=== PATIENT | male | born 1945 | race African-American/Black ===

== ENCOUNTER 2022-01-20 01:23 | Inpatient (IN) ==
[2022-01-20 03:03] LABS: Alanine Aminotransferase 13 U/L (16-61); Albumin 2.3 G/DL (3.4-5.0); Alkaline Phosphatase 127 U/L (45-117); Aspartate Amino Transferase 19 U/L (0-37); Bilirubin,Total < 0.39 MG/DL (0.20-1.00); Blood Urea Nitrogen 23 MG/DL (7-18); Calcium 8.6 MG/DL (8.5-10.1); Carbon Dioxide 30 MMOL/L (21-32); Chloride 106 MMOL/L (98-107); Glucose 81 MG/DL (74-106); Osmolality,Calculated 285.1 MOS/KG (273-304); Potassium 4.4 MMOL/L (3.5-5.1); Sodium 142 MMOL/L (136-145); Total Protein 6.8 G/DL (6.4-8.2)
[2022-01-20 03:04] LABS: Basophils % 0.5 % (0.0-0.8); Eosinophils # 0.3 10*3/uL (0.0-0.87); Eosinophils % 4.8 % (0.00-10.9); Hematocrit 30.1 VOL% (42.0-52.0); Hemoglobin 8.9 GM/DL (14.0-18.0); Immature Granulocytes % 0.5 %; Immature Granulocytes Absolute 0.03 #; Lymphocytes % 29.7 % (21.2-54.2); Mean Corpuscular HGB Conc 29.6 GM/DL (32-36); Mean Corpuscular Volume 88.3 FL (87-102); Monocytes # 0.5 10*3/uL (0.11-0.8); Monocytes % 7.7 % (1.7-12.7); Neutrophils % 56.8 % (38.7-73.9); Platelet Count 134 T/CUMM (130-400); Red Blood Count 3.41 MC/CUMM (3.8-5.5); Red Cell Distribution Width 15.6 % (9.3-17.3); White Blood Count 6.7 T/CUMM (4-12)
[2022-01-20 03:12] LABS: PT Patient Result 11.3 SECS (10.5-12.0)
[2022-01-20 03:20] LABS: Bacteria,Urine Moderate /HPF (Few)
[2022-01-20 03:21] LABS: Bilirubin,Urine Negative (Negative); Blood, Urine Small mg/dL (Negative); Glucose,Urine (UA) Negative (Negative); Ketones,Urine Negative (Negative); Nitrite,Urine Positive (Negative); Protein,Urine 30 mg/dL (Negative); Urine Appearance CLOUDY (Clear); Urine Color Yellow (Yellow); Urine Urobilinogen 0.2 eU/dL (<2.0); Urine pH 5.5 (4.5-8.0)
[2022-01-20] MEDS ORDERED: cefTRIAXone 1,000 MG in SODIUM CHLORIDE 0.9% 100 ML IV STA (03:28)
[2022-01-20] MEDS ORDERED: GLUCAGON 1 MG VIAL IM PRN (05:01)
[2022-01-20] MEDS ORDERED: SIMETHICONE CHEW 125 MG TABLET PO PRN (05:01)
[2022-01-20] MEDS ORDERED: ACETAMINOPHEN 325 MG TABLET PO PRN (05:01)
[2022-01-20] MEDS ORDERED: ONDANSETRON 4 MG/2 ML VIAL IV PRN (05:01)
[2022-01-20] MEDS ORDERED: DEXTROSE 10% 250 ML BAG IV PRN (05:13)
[2022-01-20] MEDS: ENOXAPARIN 40 MG/0.4 ML SYRINGE SUBCUT SCH (05:52)
[2022-01-20] MEDS: PANTOPRAZOLE 40 MG TABLET PO SCH (10:25)
[2022-01-20] MEDS: DOCUSATE SODIUM 100 MG CAPSULE PO SCH ×2 (10:25→22:23)
[2022-01-20] MEDS: LACTATED RINGERS 1,000 ML IV SCH ×2 (10:27→18:45)
[2022-01-20] MEDS: INSULIN REGULAR 100 UNIT/ML SUBCUT SCH ×4 (10:38→22:20)
[2022-01-21] MEDS: LACTATED RINGERS 1,000 ML IV SCH ×2 (02:10→09:33)
[2022-01-21 05:04] LABS: Basophils % 0.6 % (0.0-0.8); Eosinophils # 0.3 10*3/uL (0.0-0.87); Eosinophils % 5.4 % (0.00-10.9); Hematocrit 29.6 VOL% (42.0-52.0); Hemoglobin 8.8 GM/DL (14.0-18.0); Immature Granulocytes % 0.4 %; Immature Granulocytes Absolute 0.02 #; Lymphocytes # 1.6 10*3/uL (1.4-4.0); Lymphocytes % 30.8 % (21.2-54.2); Mean Corpuscular HGB Conc 29.7 GM/DL (32-36); Mean Corpuscular Volume 88.4 FL (87-102); Mean Platelet Volume 11.3 FL (9.6-12.0); Monocytes # 0.4 10*3/uL (0.11-0.8); Monocytes % 7.9 % (1.7-12.7); Neutrophils % 54.9 % (38.7-73.9); Platelet Count 127 T/CUMM (130-400); Red Blood Count 3.35 MC/CUMM (3.8-5.5); Red Cell Distribution Width 15.5 % (9.3-17.3); White Blood Count 5.2 T/CUMM (4-12)
[2022-01-21 05:26] LABS: Calcium 8.5 MG/DL (8.5-10.1); Osmolality,Calculated 281.3 MOS/KG (273-304); Potassium 4.3 MMOL/L (3.5-5.1)
[2022-01-21] MEDS: ENOXAPARIN 40 MG/0.4 ML SYRINGE SUBCUT SCH (05:43)
[2022-01-21] MEDS: PANTOPRAZOLE 40 MG TABLET PO SCH (08:18)
[2022-01-21] MEDS ORDERED: ALBUTEROL 2.5 MG/3 ML NEB RESP TX PRN (08:40)
[2022-01-21] MEDS ORDERED: FLUTICASONE FUROATE VILANTEROL INH SCH (09:00)
[2022-01-21] MEDS ORDERED: OXcarbazepine 300 MG TABLET PO SCH (09:00)
[2022-01-21] MEDS ORDERED: AMANTADINE 100 MG CAPSULE PO SCH (09:00)
[2022-01-21] MEDS ORDERED: levETIRAcetam 500 MG TABLET PO SCH (09:00)
[2022-01-21] MEDS ORDERED: cefTRIAXone 1,000 MG in SODIUM CHLORIDE 0.9% 100 ML IV SCH (09:00)
[2022-01-21] MEDS ORDERED: CHOLECALCIFEROL 1,000 UNIT TABLET PO SCH (09:00)
[2022-01-21] MEDS ORDERED: ASPIRIN EC 81 MG TABLET PO SCH (09:00)
[2022-01-21] MEDS ORDERED: THEOPHYLLINE ER (24 HR) 400 MG CAPSULE PO SCH (09:00)
[2022-01-21] MEDS ORDERED: ATORVASTATIN 40 MG TABLET PO SCH (09:00)
[2022-01-21] MEDS ORDERED: [UNRECOGNIZED DRUG - OTHER] INH SCH (09:00)
[2022-01-21] MEDS: INSULIN REGULAR 100 UNIT/ML SUBCUT SCH ×2 (09:33→12:50)
[2022-01-21 11:42] VITALS: BP 171/67
[2022-01-21] MEDS: DOCUSATE SODIUM 100 MG CAPSULE PO SCH (12:47)
[2022-01-21] MEDS ORDERED: ALBUTEROL/IPRATROPIUM 3 ML NEB RESP TX SCH (13:00)
[2022-01-21] MEDS ORDERED: TAMSULOSIN 0.4 MG CAPSULE PO SCH (21:00)
== END 2022-01-21 13:25 | DRG 689 ==
LOC: EDBD → EDUNIT# → SUATTDRO → N.ED 01:23 → N.EDINP 01:23 → SUATTDRO 08:14 → N.5E 16:06 → N.EDINP 16:30 → N.5E 16:35
PROVIDERS: ADMIT Internal Medicine; ATTEND Internal Medicine

== ENCOUNTER 2022-02-18 10:34 | Inpatient (IN) ==
[2022-02-18] MEDS ORDERED: SODIUM CHLORIDE 0.9% 1,000 ML IV STA (11:12)
[2022-02-18 11:38] LABS: Alanine Aminotransferase 14 U/L (16-61); Albumin 2.8 G/DL (3.4-5.0); Alkaline Phosphatase 120 U/L (45-117); Aspartate Amino Transferase 53 U/L (0-37); Bilirubin,Total < 0.39 MG/DL (0.20-1.00); Blood Urea Nitrogen 23 MG/DL (7-18); Calcium 9.7 MG/DL (8.5-10.1); Carbon Dioxide 18 MMOL/L (21-32); Chloride 113 MMOL/L (98-107); Glucose 93 MG/DL (74-106); Osmolality,Calculated 297.3 MOS/KG (273-304); Potassium 4.8 MMOL/L (3.5-5.1); Sodium 148 MMOL/L (136-145); Total Protein 7.4 G/DL (6.4-8.2)
[2022-02-18 11:39] LABS: Basophils % 0.4 % (0.0-0.8); Eosinophils % 0.4 % (0.00-10.9); Hematocrit 36.3 VOL% (42.0-52.0); Hemoglobin 10.6 GM/DL (14.0-18.0); Immature Granulocytes % 2.5 %; Immature Granulocytes Absolute 0.23 #; Lymphocytes # 1.8 10*3/uL (1.4-4.0); Lymphocytes % 19.5 % (21.2-54.2); Mean Corpuscular HGB Conc 29.2 GM/DL (32-36); Mean Corpuscular Volume 89.6 FL (87-102); Mean Platelet Volume 11.2 FL (9.6-12.0); Monocytes # 0.6 10*3/uL (0.11-0.8); Monocytes % 6.1 % (1.7-12.7); NRBC # 0.04 10*3/uL; Neutrophils % 71.1 % (38.7-73.9); Platelet Count 160 T/CUMM (130-400); Red Blood Count 4.05 MC/CUMM (3.8-5.5); Red Cell Distribution Width 16.2 % (9.3-17.3); White Blood Count 9.2 T/CUMM (4-12)
[2022-02-18 11:43] LABS: Arterial Base Excess iSTAT -1 MMOL/L (-2.5-2.5); Arterial Bicarbonate iSTAT 24.7 MMOL/L (20-26); Arterial O2 Saturation iSTAT 95 % (95-100); Arterial PCO2 iSTAT 46 MM HG (35-48); Arterial PO2 iSTAT 83 MM HG (80-95); Arterial Total CO2 iSTAT 26 MMO/L (23-27); Arterial pH iSTAT 7.339 (7.35-7.45)
[2022-02-18 12:44] LABS: Atypical Lymphocytes Few; Lymphocytes 28 % (20-55); Nucleated Red Blood Cells 1 (0-5); Total Cells Counted 100
[2022-02-18 12:45] LABS: Hypochromia Slight; Microcytosis Slight
[2022-02-18] MEDS: LACTATED RINGERS 1,000 ML IV SCH (13:05)
[2022-02-18] MEDS ORDERED: LORazepam 2 MG/1 ML VIAL IV STA (13:30)
[2022-02-18 13:33] LABS: Bacteria,Urine Many /HPF (Few); Glucose,Urine (UA) Negative (Negative); Ketones,Urine Trace mg/dL (Negative); Protein,Urine 100 mg/dL (Negative); Urine Appearance Cloudy (Clear); Urine Color Yellow (Yellow); Urine Specific Gravity 1.025 (1.001-1.035)
[2022-02-18 13:34] LABS: Bilirubin,Urine Negative (Negative); Blood, Urine Trace mg/dL (Negative); Nitrite,Urine Positive (Negative); Urine Urobilinogen 0.2 eU/dL (<2.0)
[2022-02-18] MEDS ORDERED: levETIRAcetam 500 MG/5 ML VIAL IV ONE (13:36)
[2022-02-18] MEDS ORDERED: DIAZEPAM 10 MG/2 ML SYRINGE IV STA (13:45)
[2022-02-18] MEDS ORDERED: LACTATED RINGERS 1,000 ML IV ONE (13:49)
[2022-02-18] MEDS ORDERED: ONDANSETRON 4 MG/2 ML VIAL IV PRN (13:52)
[2022-02-18] MEDS: ENOXAPARIN 40 MG/0.4 ML SYRINGE SUBCUT SCH (15:30)
[2022-02-18] MEDS: PANTOPRAZOLE 40 MG VIAL IV SCH (15:43)
[2022-02-18] MEDS: ERTAPENEM 1,000 MG in SODIUM CHLORIDE 0.9% 100 ML IV SCH (21:16)
[2022-02-19] MEDS: LACTATED RINGERS 1,000 ML IV SCH ×2 (00:51→07:47)
[2022-02-19 05:30] LABS: Albumin 2.3 G/DL (3.4-5.0); Bilirubin,Total 0.4 MG/DL (0.20-1.00); Calcium 8.8 MG/DL (8.5-10.1); Osmolality,Calculated 299.9 MOS/KG (273-304); Potassium 4.2 MMOL/L (3.5-5.1); Total Protein 7.1 G/DL (6.4-8.2)
[2022-02-19 05:33] LABS: Basophils % 0.3 % (0.0-0.8); Eosinophils % 0.3 % (0.00-10.9); Hemoglobin 9.6 GM/DL (14.0-18.0); Immature Granulocytes % 1.1 %; Immature Granulocytes Absolute 0.07 #; Lymphocytes # 1.6 10*3/uL (1.4-4.0); Lymphocytes % 24.2 % (21.2-54.2); Mean Corpuscular Volume 89.4 FL (87-102); Mean Platelet Volume 11.5 FL (9.6-12.0); Monocytes # 0.5 10*3/uL (0.11-0.8); Monocytes % 6.9 % (1.7-12.7); Neutrophils % 67.2 % (38.7-73.9); Platelet Count 112 T/CUMM (130-400); Red Blood Count 3.58 MC/CUMM (3.8-5.5); Red Cell Distribution Width 16.5 % (9.3-17.3); White Blood Count 6.6 T/CUMM (4-12)
[2022-02-19 05:44] LABS: Hypochromia Slight; Microcytosis Slight
[2022-02-19] MEDS ORDERED: MAGNESIUM SULF RIDER 2 GM/50 ML PREMIX IV PRN (07:15)
[2022-02-19] MEDS ORDERED: DEXTROSE 10% 250 ML BAG IV PRN (07:19)
[2022-02-19] MEDS ORDERED: ALBUTEROL 0.63 MG/3 ML NEB RESP TX PRN (07:30)
[2022-02-19] MEDS ORDERED: SODIUM CHLORIDE 0.45% 1,000 ML IV SCH (07:30)
[2022-02-19] MEDS ORDERED: LOPERAMIDE 2 MG CAPSULE PO PRN (07:43)
[2022-02-19] MEDS: PREGABALIN 50 MG CAPSULE PO SCH ×3 (08:37→20:22)
[2022-02-19] MEDS: THEOPHYLLINE ER (24 HR) 200 MG CAPSULE PO SCH ×3 (08:37→20:22)
[2022-02-19] MEDS: ATORVASTATIN 40 MG TABLET PO SCH ×2 (08:37→09:08)
[2022-02-19] MEDS: ASPIRIN EC 81 MG TABLET PO SCH ×2 (08:37→09:07)
[2022-02-19] MEDS: ALPRAZolam 0.25 MG TABLET PO SCH ×3 (08:38→20:22)
[2022-02-19] MEDS: BACLOFEN 10 MG TABLET PO SCH ×3 (08:38→20:23)
[2022-02-19] MEDS: levETIRAcetam 500 MG TABLET PO SCH ×2 (08:38→09:08)
[2022-02-19] MEDS: DULoxetine 30 MG CAPSULE PO SCH ×2 (08:39→09:08)
[2022-02-19] MEDS: CHOLECALCIFEROL 1,000 UNIT TABLET PO SCH ×2 (08:39→09:08)
[2022-02-19] MEDS: CETIRIZINE 10 MG TABLET PO SCH ×2 (08:39→09:09)
[2022-02-19] MEDS: LOSARTAN 50 MG TABLET PO SCH ×2 (08:39→09:08)
[2022-02-19] MEDS: CYANOCOBALAMIN 1000 MCG/1 ML VIAL IM SCH ×2 (08:40→09:07)
[2022-02-19] MEDS ORDERED: HALOPERIDOL 5 MG/ML AMP IM ONE (09:00)
[2022-02-19] MEDS ORDERED: PANTOPRAZOLE 40 MG TABLET PO SCH (09:00)
[2022-02-19] MEDS ORDERED: NON-FORMULARY MEDICATION (Fluticasone Furoate-Vilanterol [Breo Ellipta] 100-25 mcg/dose Bl INH SCH (09:00)
[2022-02-19] MEDS: OXcarbazepine 300 MG TABLET PO SCH ×2 (09:08→20:21)
[2022-02-19] MEDS: AMANTADINE 100 MG CAPSULE PO SCH ×2 (09:08→22:44)
[2022-02-19] MEDS ORDERED: METOPROLOL TARTRATE 5 MG/5 ML VIAL IV ONE (10:58)
[2022-02-19] MEDS ORDERED: diphenhydrAMINE 50 MG/1 ML VIAL IV ONE (10:58)
[2022-02-19] MEDS ORDERED: VALPROIC ACID INJ 1,000 MG in SODIUM CHLORIDE 0.9% 100 ML IV ONE (11:41)
[2022-02-19] MEDS: DEXTROSE 5% NACL 0.45% 1,000 ML IV SCH (12:53)
[2022-02-19] MEDS: BUDESONIDE 0.5 MG/2 ML NEB RESP TX SCH ×2 (13:00→19:40)
[2022-02-19] MEDS: ALBUTEROL/IPRATROPIUM 3 ML NEB RESP TX SCH ×2 (13:00→19:40)
[2022-02-19] MEDS: PANTOPRAZOLE 40 MG VIAL IV SCH (14:33)
[2022-02-19] MEDS: ENOXAPARIN 40 MG/0.4 ML SYRINGE SUBCUT SCH (14:33)
[2022-02-19] MEDS ORDERED: GLUCAGON 1 MG VIAL IM PRN (15:19)
[2022-02-19] MEDS ORDERED: DEXTROSE 50% 25 GM/50 ML VIAL IV PRN (15:19)
[2022-02-19] MEDS: INSULIN LISPRO 100 UNIT/ML SUBCUT SCH ×2 (17:29→23:56)
[2022-02-19] MEDS ORDERED: DIAZEPAM 10 MG/2 ML SYRINGE IV ONE (18:53)
[2022-02-19] MEDS ORDERED: LEVALBUTEROL 1.25 MG/3 ML NEB RESP TX ONE (18:59)
[2022-02-19] MEDS: TAMSULOSIN 0.4 MG CAPSULE PO SCH (20:21)
[2022-02-19] MEDS: MIRTAZAPINE 15 MG TABLET PO SCH (20:22)
[2022-02-19] MEDS: MELATONIN 3 MG TABLET PO SCH (20:22)
[2022-02-19] MEDS: ERTAPENEM 1,000 MG in SODIUM CHLORIDE 0.9% 100 ML IV SCH (20:39)
[2022-02-19] MEDS: VALPROIC ACID INJ 500 MG in SODIUM CHLORIDE 0.9% 100 ML IV SCH (23:56)
[2022-02-20] MEDS: DEXTROSE 5% NACL 0.45% 1,000 ML IV SCH (04:43)
[2022-02-20] MEDS: INSULIN LISPRO 100 UNIT/ML SUBCUT SCH ×3 (05:58→17:28)
[2022-02-20 06:03] LABS: Basophils % 0.4 % (0.0-0.8); Eosinophils # 0.1 10*3/uL (0.0-0.87); Eosinophils % 2.1 % (0.00-10.9); Hematocrit 29.1 VOL% (42.0-52.0); Hemoglobin 8.5 GM/DL (14.0-18.0); Immature Granulocytes % 0.4 %; Immature Granulocytes Absolute 0.02 #; Lymphocytes # 1.6 10*3/uL (1.4-4.0); Lymphocytes % 31.8 % (21.2-54.2); Mean Corpuscular HGB Conc 29.2 GM/DL (32-36); Mean Corpuscular Volume 89.3 FL (87-102); Mean Platelet Volume 10.8 FL (9.6-12.0); Monocytes # 0.5 10*3/uL (0.11-0.8); Monocytes % 9.5 % (1.7-12.7); Neutrophils % 55.8 % (38.7-73.9); Platelet Count 92 T/CUMM (130-400); Red Blood Count 3.26 MC/CUMM (3.8-5.5); Red Cell Distribution Width 16.5 % (9.3-17.3); White Blood Count 5.2 T/CUMM (4-12)
[2022-02-20 06:28] LABS: Calcium 8.4 MG/DL (8.5-10.1); Osmolality,Calculated 301.7 MOS/KG (273-304); Platelet Estimate Decreased; Potassium 3.5 MMOL/L (3.5-5.1)
[2022-02-20] MEDS: BUDESONIDE 0.5 MG/2 ML NEB RESP TX SCH ×2 (07:16→19:32)
[2022-02-20] MEDS: ALBUTEROL/IPRATROPIUM 3 ML NEB RESP TX SCH ×4 (07:16→19:31)
[2022-02-20] MEDS: THEOPHYLLINE ER (24 HR) 200 MG CAPSULE PO SCH ×2 (09:31→21:37)
[2022-02-20] MEDS: OXcarbazepine 300 MG TABLET PO SCH ×2 (09:31→21:37)
[2022-02-20] MEDS: DULoxetine 30 MG CAPSULE PO SCH (09:32)
[2022-02-20] MEDS: ALPRAZolam 0.25 MG TABLET PO SCH ×2 (09:32→21:37)
[2022-02-20] MEDS: BACLOFEN 10 MG TABLET PO SCH ×2 (09:32→21:37)
[2022-02-20] MEDS: PREGABALIN 50 MG CAPSULE PO SCH ×2 (09:32→21:37)
[2022-02-20] MEDS: AMANTADINE 100 MG CAPSULE PO SCH ×2 (09:32→21:37)
[2022-02-20] MEDS: ASPIRIN EC 81 MG TABLET PO SCH (09:32)
[2022-02-20] MEDS: ATORVASTATIN 40 MG TABLET PO SCH (09:33)
[2022-02-20] MEDS: CETIRIZINE 10 MG TABLET PO SCH (09:33)
[2022-02-20] MEDS: LOSARTAN 50 MG TABLET PO SCH (09:33)
[2022-02-20] MEDS: CHOLECALCIFEROL 1,000 UNIT TABLET PO SCH (09:33)
[2022-02-20] MEDS: VALPROIC ACID INJ 500 MG in SODIUM CHLORIDE 0.9% 100 ML IV SCH ×2 (09:33→21:37)
[2022-02-20] MEDS: NON-FORMULARY MEDICATION (Fluticasone Furoate-Vilanterol [Breo Ellipta] 100-25 mcg/dose Bl INH SCH (10:41)
[2022-02-20] MEDS ORDERED: BISACODYL 5 MG TABLET PO ONE (12:02)
[2022-02-20] MEDS ORDERED: METHYLNALTREXONE 12 MG/0.6 ML VIAL SUBCUT ONE (13:09)
[2022-02-20] MEDS: PANTOPRAZOLE 40 MG VIAL IV SCH (14:37)
[2022-02-20] MEDS: DEXTROSE 5% 1,000 ML IV SCH (14:38)
[2022-02-20] MEDS: ENOXAPARIN 40 MG/0.4 ML SYRINGE SUBCUT SCH (14:38)
[2022-02-20] MEDS: MIRTAZAPINE 15 MG TABLET PO SCH (21:37)
[2022-02-20] MEDS: MELATONIN 3 MG TABLET PO SCH (21:37)
[2022-02-20] MEDS: ERTAPENEM 1,000 MG in SODIUM CHLORIDE 0.9% 100 ML IV SCH (21:37)
[2022-02-20] MEDS: TAMSULOSIN 0.4 MG CAPSULE PO SCH (21:37)
[2022-02-21] MEDS: INSULIN LISPRO 100 UNIT/ML SUBCUT SCH ×5 (00:25→21:24)
[2022-02-21] MEDS: ALBUTEROL/IPRATROPIUM 3 ML NEB RESP TX SCH ×4 (00:49→19:26)
[2022-02-21] MEDS: DEXTROSE 5% 1,000 ML IV SCH ×2 (02:50→15:11)
[2022-02-21 05:41] LABS: Calcium 8.6 MG/DL (8.5-10.1); Osmolality,Calculated 296.3 MOS/KG (273-304); Potassium 3.2 MMOL/L (3.5-5.1)
[2022-02-21 06:55] LABS: Basophils % 0.4 % (0.0-0.8); Eosinophils # 0.3 10*3/uL (0.0-0.87); Eosinophils % 5.5 % (0.00-10.9); Hematocrit 32.5 VOL% (42.0-52.0); Hemoglobin 9.2 GM/DL (14.0-18.0); Immature Granulocytes % 0.6 %; Immature Granulocytes Absolute 0.03 #; Lymphocytes # 1.6 10*3/uL (1.4-4.0); Lymphocytes % 32.3 % (21.2-54.2); Mean Corpuscular HGB Conc 28.3 GM/DL (32-36); Mean Corpuscular Volume 92.6 FL (87-102); Mean Platelet Volume 11.4 FL (9.6-12.0); Monocytes # 0.4 10*3/uL (0.11-0.8); Monocytes % 7.9 % (1.7-12.7); NRBC # 0.02 10*3/uL; Neutrophils % 53.3 % (38.7-73.9); Platelet Count 80 T/CUMM (130-400); Red Blood Count 3.51 MC/CUMM (3.8-5.5); Red Cell Distribution Width 16.7 % (9.3-17.3); White Blood Count 5.1 T/CUMM (4-12)
[2022-02-21] MEDS: BUDESONIDE 0.5 MG/2 ML NEB RESP TX SCH ×2 (07:06→19:26)
[2022-02-21] MEDS ORDERED: BISACODYL 5 MG TABLET PO SCH (09:00)
[2022-02-21] MEDS: NON-FORMULARY MEDICATION (Fluticasone Furoate-Vilanterol [Breo Ellipta] 100-25 mcg/dose Bl INH SCH (09:10)
[2022-02-21] MEDS: BACLOFEN 10 MG TABLET PO SCH ×2 (09:42→21:24)
[2022-02-21] MEDS: PREGABALIN 50 MG CAPSULE PO SCH ×2 (09:42→21:24)
[2022-02-21] MEDS: ALPRAZolam 0.25 MG TABLET PO SCH ×2 (09:42→21:24)
[2022-02-21] MEDS: DULoxetine 30 MG CAPSULE PO SCH (09:42)
[2022-02-21] MEDS: LOSARTAN 50 MG TABLET PO SCH (09:42)
[2022-02-21] MEDS: AMANTADINE 100 MG CAPSULE PO SCH ×2 (09:42→21:24)
[2022-02-21] MEDS: ASPIRIN EC 81 MG TABLET PO SCH (09:42)
[2022-02-21] MEDS: ATORVASTATIN 40 MG TABLET PO SCH (09:42)
[2022-02-21] MEDS: OXcarbazepine 300 MG TABLET PO SCH ×2 (09:42→21:24)
[2022-02-21] MEDS: CETIRIZINE 10 MG TABLET PO SCH (09:42)
[2022-02-21] MEDS: THEOPHYLLINE ER (24 HR) 200 MG CAPSULE PO SCH ×2 (09:42→21:24)
[2022-02-21] MEDS: VALPROIC ACID INJ 500 MG in SODIUM CHLORIDE 0.9% 100 ML IV SCH ×2 (09:43→21:24)
[2022-02-21] MEDS: CYANOCOBALAMIN 1000 MCG/1 ML VIAL IM SCH (09:43)
[2022-02-21] MEDS: CHOLECALCIFEROL 1,000 UNIT TABLET PO SCH (09:45)
[2022-02-21] MEDS ORDERED: BISACODYL 5 MG TABLET PO PRN (09:45)
[2022-02-21] MEDS ORDERED: POTASSIUM CHLORIDE 20 MEQ TABLET PO ONE (13:55)
[2022-02-21] MEDS: ENOXAPARIN 40 MG/0.4 ML SYRINGE SUBCUT SCH (15:07)
[2022-02-21] MEDS: PANTOPRAZOLE 40 MG VIAL IV SCH (15:07)
[2022-02-21] MEDS: MELATONIN 3 MG TABLET PO SCH (21:24)
[2022-02-21] MEDS: ERTAPENEM 1,000 MG in SODIUM CHLORIDE 0.9% 100 ML IV SCH (21:24)
[2022-02-21] MEDS: TAMSULOSIN 0.4 MG CAPSULE PO SCH (21:24)
[2022-02-21] MEDS: MIRTAZAPINE 15 MG TABLET PO SCH (21:24)
[2022-02-22] MEDS: ALBUTEROL/IPRATROPIUM 3 ML NEB RESP TX SCH ×4 (01:00→19:45)
[2022-02-22] MEDS: INSULIN LISPRO 100 UNIT/ML SUBCUT SCH ×3 (05:52→18:11)
[2022-02-22 06:34] LABS: Calcium 8.5 MG/DL (8.5-10.1); Osmolality,Calculated 299.9 MOS/KG (273-304); Potassium 4.4 MMOL/L (3.5-5.1)
[2022-02-22] MEDS: BUDESONIDE 0.5 MG/2 ML NEB RESP TX SCH ×2 (07:18→19:45)
[2022-02-22] MEDS: AMANTADINE 100 MG CAPSULE PO SCH ×2 (10:12→22:19)
[2022-02-22] MEDS: POTASSIUM CHLORIDE 20 MEQ TABLET PO SCH (10:13)
[2022-02-22] MEDS: CETIRIZINE 10 MG TABLET PO SCH (10:13)
[2022-02-22] MEDS: BACLOFEN 10 MG TABLET PO SCH ×2 (10:13→22:19)
[2022-02-22] MEDS: PREGABALIN 50 MG CAPSULE PO SCH ×2 (10:13→22:19)
[2022-02-22] MEDS: OXcarbazepine 300 MG TABLET PO SCH ×2 (10:13→22:20)
[2022-02-22] MEDS: ASPIRIN EC 81 MG TABLET PO SCH (10:13)
[2022-02-22] MEDS: CHOLECALCIFEROL 1,000 UNIT TABLET PO SCH (10:13)
[2022-02-22] MEDS: DULoxetine 30 MG CAPSULE PO SCH (10:13)
[2022-02-22] MEDS: LOSARTAN 50 MG TABLET PO SCH (10:13)
[2022-02-22] MEDS: ALPRAZolam 0.25 MG TABLET PO SCH ×2 (10:14→22:19)
[2022-02-22] MEDS: ATORVASTATIN 40 MG TABLET PO SCH (10:14)
[2022-02-22] MEDS: THEOPHYLLINE ER (24 HR) 200 MG CAPSULE PO SCH ×2 (10:14→22:20)
[2022-02-22] MEDS: NON-FORMULARY MEDICATION (Fluticasone Furoate-Vilanterol [Breo Ellipta] 100-25 mcg/dose Bl INH SCH (10:16)
[2022-02-22] MEDS: VALPROIC ACID INJ 500 MG in SODIUM CHLORIDE 0.9% 100 ML IV SCH ×2 (10:19→22:15)
[2022-02-22] MEDS: DEXTROSE 5% 1,000 ML IV SCH (10:33)
[2022-02-22] MEDS: SODIUM CHLORIDE 0.9% 1,000 ML IV SCH (16:40)
[2022-02-22] MEDS: ENOXAPARIN 40 MG/0.4 ML SYRINGE SUBCUT SCH (22:19)
[2022-02-22] MEDS: MELATONIN 3 MG TABLET PO SCH (22:19)
[2022-02-22] MEDS: MIRTAZAPINE 15 MG TABLET PO SCH (22:19)
[2022-02-22] MEDS: TAMSULOSIN 0.4 MG CAPSULE PO SCH (22:19)
[2022-02-23] MEDS: ERTAPENEM 1,000 MG in SODIUM CHLORIDE 0.9% 100 ML IV SCH ×2 (00:10→20:19)
[2022-02-23] MEDS: ALBUTEROL/IPRATROPIUM 3 ML NEB RESP TX SCH ×4 (00:18→19:25)
[2022-02-23] MEDS: INSULIN LISPRO 100 UNIT/ML SUBCUT SCH ×4 (01:20→17:31)
[2022-02-23 05:38] LABS: Basophils % 0.1 % (0.0-0.8); Eosinophils # 0.3 10*3/uL (0.0-0.87); Eosinophils % 4.6 % (0.00-10.9); Hematocrit 30.2 VOL% (42.0-52.0); Hemoglobin 8.8 GM/DL (14.0-18.0); Immature Granulocytes % 0.6 %; Immature Granulocytes Absolute 0.04 #; Lymphocytes # 1.4 10*3/uL (1.4-4.0); Lymphocytes % 20.1 % (21.2-54.2); Mean Corpuscular HGB Conc 29.1 GM/DL (32-36); Mean Corpuscular Volume 90.7 FL (87-102); Mean Platelet Volume 11.9 FL (9.6-12.0); Monocytes # 0.4 10*3/uL (0.11-0.8); Monocytes % 5.8 % (1.7-12.7); Neutrophils % 68.8 % (38.7-73.9); Platelet Count 74 T/CUMM (130-400); Red Blood Count 3.33 MC/CUMM (3.8-5.5); Red Cell Distribution Width 16.8 % (9.3-17.3); White Blood Count 6.7 T/CUMM (4-12)
[2022-02-23 05:55] LABS: Alanine Aminotransferase 21 U/L (16-61); Albumin 2.1 G/DL (3.4-5.0); Alkaline Phosphatase 137 U/L (45-117); Aspartate Amino Transferase 32 U/L (0-37); Bilirubin,Total < 0.39 MG/DL (0.20-1.00); Blood Urea Nitrogen 12 MG/DL (7-18); Calcium 8.8 MG/DL (8.5-10.1); Carbon Dioxide 27 MMOL/L (21-32); Chloride 114 MMOL/L (98-107); Glucose 102 MG/DL (74-106); Osmolality,Calculated 291.4 MOS/KG (273-304); Sodium 147 MMOL/L (136-145); Total Protein 6.3 G/DL (6.4-8.2)
[2022-02-23] MEDS: PANTOPRAZOLE 40 MG TABLET PO SCH (06:03)
[2022-02-23 06:08] LABS: Eosinophils 5 % (0-10); Hypochromia Slight; Lymphocytes 10 % (20-55); Microcytosis Slight; Platelet Estimate Decreased; Total Cells Counted 100
[2022-02-23] MEDS: BUDESONIDE 0.5 MG/2 ML NEB RESP TX SCH ×2 (07:12→19:25)
[2022-02-23] MEDS: SODIUM CHLORIDE 0.9% 1,000 ML IV SCH ×2 (07:43→17:40)
[2022-02-23] MEDS: VALPROIC ACID INJ 500 MG in SODIUM CHLORIDE 0.9% 100 ML IV SCH ×2 (10:02→21:47)
[2022-02-23] MEDS: POTASSIUM CHLORIDE 20 MEQ TABLET PO SCH (10:03)
[2022-02-23] MEDS: CETIRIZINE 10 MG TABLET PO SCH (10:04)
[2022-02-23] MEDS: OXcarbazepine 300 MG TABLET PO SCH ×2 (10:04→20:19)
[2022-02-23] MEDS: ATORVASTATIN 40 MG TABLET PO SCH (10:04)
[2022-02-23] MEDS: AMANTADINE 100 MG CAPSULE PO SCH ×2 (10:05→20:18)
[2022-02-23] MEDS: DULoxetine 30 MG CAPSULE PO SCH (10:05)
[2022-02-23] MEDS: THEOPHYLLINE ER (24 HR) 200 MG CAPSULE PO SCH ×2 (10:05→20:18)
[2022-02-23] MEDS: BACLOFEN 10 MG TABLET PO SCH ×2 (10:05→20:18)
[2022-02-23] MEDS: ALPRAZolam 0.25 MG TABLET PO SCH ×2 (10:05→20:18)
[2022-02-23] MEDS: CHOLECALCIFEROL 1,000 UNIT TABLET PO SCH (10:05)
[2022-02-23] MEDS: PREGABALIN 50 MG CAPSULE PO SCH ×2 (10:05→20:18)
[2022-02-23] MEDS: LOSARTAN 50 MG TABLET PO SCH (10:05)
[2022-02-23] MEDS: ASPIRIN EC 81 MG TABLET PO SCH (10:06)
[2022-02-23] MEDS: NON-FORMULARY MEDICATION (Fluticasone Furoate-Vilanterol [Breo Ellipta] 100-25 mcg/dose Bl INH SCH (10:06)
[2022-02-23] MEDS: LACTULOSE 20 GM/30 ML UDCUP PO SCH ×3 (14:24→20:18)
[2022-02-23] MEDS: MELATONIN 3 MG TABLET PO SCH (20:18)
[2022-02-23] MEDS: TAMSULOSIN 0.4 MG CAPSULE PO SCH (20:18)
[2022-02-23] MEDS: ENOXAPARIN 40 MG/0.4 ML SYRINGE SUBCUT SCH (20:18)
[2022-02-23] MEDS: MIRTAZAPINE 15 MG TABLET PO SCH (20:18)
[2022-02-24] MEDS: INSULIN LISPRO 100 UNIT/ML SUBCUT SCH ×4 (00:17→17:16)
[2022-02-24] MEDS: ALBUTEROL/IPRATROPIUM 3 ML NEB RESP TX SCH ×4 (00:45→19:00)
[2022-02-24 05:33] LABS: Basophils % 0.2 % (0.0-0.8); Eosinophils # 0.2 10*3/uL (0.0-0.87); Eosinophils % 4.2 % (0.00-10.9); Hematocrit 27.4 VOL% (42.0-52.0); Hemoglobin 8.4 GM/DL (14.0-18.0); Immature Granulocytes % 0.5 %; Immature Granulocytes Absolute 0.03 #; Lymphocytes # 1.8 10*3/uL (1.4-4.0); Lymphocytes % 33.2 % (21.2-54.2); Mean Corpuscular HGB Conc 30.7 GM/DL (32-36); Mean Corpuscular Volume 90.1 FL (87-102); Monocytes # 0.4 10*3/uL (0.11-0.8); Monocytes % 7.6 % (1.7-12.7); Neutrophils % 54.3 % (38.7-73.9); Platelet Count 94 T/CUMM (130-400); Red Blood Count 3.04 MC/CUMM (3.8-5.5); Red Cell Distribution Width 17.4 % (9.3-17.3); White Blood Count 5.5 T/CUMM (4-12)
[2022-02-24] MEDS: PANTOPRAZOLE 40 MG TABLET PO SCH (05:53)
[2022-02-24 06:01] LABS: Alanine Aminotransferase 19 U/L (16-61); Albumin 2.1 G/DL (3.4-5.0); Alkaline Phosphatase 127 U/L (45-117); Aspartate Amino Transferase 26 U/L (0-37); Bilirubin,Total < 0.39 MG/DL (0.20-1.00); Blood Urea Nitrogen 9 MG/DL (7-18); Calcium 8.6 MG/DL (8.5-10.1); Carbon Dioxide 30 MMOL/L (21-32); Chloride 116 MMOL/L (98-107); Glucose 83 MG/DL (74-106); Potassium 3.8 MMOL/L (3.5-5.1); Sodium 150 MMOL/L (136-145); Total Protein 6.1 G/DL (6.4-8.2)
[2022-02-24 06:03] LABS: Eosinophils 7 % (0-10); Hypochromia Slight; Lymphocytes 29 % (20-55); Platelet Estimate Decreased; Total Cells Counted 100
[2022-02-24] MEDS: BUDESONIDE 0.5 MG/2 ML NEB RESP TX SCH ×2 (07:15→19:01)
[2022-02-24] MEDS: OXcarbazepine 300 MG TABLET PO SCH ×2 (08:14→20:50)
[2022-02-24] MEDS: BACLOFEN 10 MG TABLET PO SCH ×2 (08:14→20:50)
[2022-02-24] MEDS: CETIRIZINE 10 MG TABLET PO SCH (08:15)
[2022-02-24] MEDS: DULoxetine 30 MG CAPSULE PO SCH (08:15)
[2022-02-24] MEDS: PREGABALIN 50 MG CAPSULE PO SCH ×2 (08:15→20:51)
[2022-02-24] MEDS: LOSARTAN 50 MG TABLET PO SCH (08:15)
[2022-02-24] MEDS: AMANTADINE 100 MG CAPSULE PO SCH ×2 (08:15→20:50)
[2022-02-24] MEDS: POTASSIUM CHLORIDE 20 MEQ TABLET PO SCH (08:15)
[2022-02-24] MEDS: THEOPHYLLINE ER (24 HR) 200 MG CAPSULE PO SCH ×2 (08:15→20:50)
[2022-02-24] MEDS: ALPRAZolam 0.25 MG TABLET PO SCH ×2 (08:15→20:51)
[2022-02-24] MEDS: ATORVASTATIN 40 MG TABLET PO SCH (08:15)
[2022-02-24] MEDS: ASPIRIN EC 81 MG TABLET PO SCH (08:15)
[2022-02-24] MEDS: CHOLECALCIFEROL 1,000 UNIT TABLET PO SCH (08:15)
[2022-02-24] MEDS: LACTULOSE 20 GM/30 ML UDCUP PO SCH (08:16)
[2022-02-24] MEDS: SODIUM CHLORIDE 0.45% 1,000 ML IV SCH (08:16)
[2022-02-24] MEDS: NON-FORMULARY MEDICATION (Fluticasone Furoate-Vilanterol [Breo Ellipta] 100-25 mcg/dose Bl INH SCH (08:17)
[2022-02-24] MEDS: VALPROIC ACID INJ 500 MG in SODIUM CHLORIDE 0.9% 100 ML IV SCH (08:32)
[2022-02-24] MEDS: SODIUM CHLORIDE 0.9% 1,000 ML IV SCH (09:11)
[2022-02-24] MEDS: MELATONIN 3 MG TABLET PO SCH (20:44)
[2022-02-24] MEDS: MIRTAZAPINE 15 MG TABLET PO SCH (20:50)
[2022-02-24] MEDS: TAMSULOSIN 0.4 MG CAPSULE PO SCH (20:50)
[2022-02-24] MEDS: DIVALPROEX 500 MG TABLET PO SCH (20:51)
[2022-02-24] MEDS: ENOXAPARIN 40 MG/0.4 ML SYRINGE SUBCUT SCH (20:58)
[2022-02-24] MEDS ORDERED: PRIMIDONE 50 MG TABLET PO SCH (21:00)
[2022-02-24] MEDS: ERTAPENEM 1,000 MG in SODIUM CHLORIDE 0.9% 100 ML IV SCH (21:01)
[2022-02-25] MEDS: ALBUTEROL/IPRATROPIUM 3 ML NEB RESP TX SCH ×2 (00:04→07:10)
[2022-02-25] MEDS: INSULIN LISPRO 100 UNIT/ML SUBCUT SCH ×2 (00:10→06:21)
[2022-02-25] MEDS: SODIUM CHLORIDE 0.45% 1,000 ML IV SCH (00:10)
[2022-02-25 06:02] LABS: Basophils % 0.2 % (0.0-0.8); Eosinophils # 0.2 10*3/uL (0.0-0.87); Eosinophils % 3.9 % (0.00-10.9); Hematocrit 27.7 VOL% (42.0-52.0); Hemoglobin 8.1 GM/DL (14.0-18.0); Immature Granulocytes % 0.8 %; Immature Granulocytes Absolute 0.04 #; Lymphocytes # 1.6 10*3/uL (1.4-4.0); Lymphocytes % 32.2 % (21.2-54.2); Mean Corpuscular HGB Conc 29.2 GM/DL (32-36); Mean Corpuscular Volume 89.9 FL (87-102); Mean Platelet Volume 12.2 FL (9.6-12.0); Monocytes # 0.5 10*3/uL (0.11-0.8); Monocytes % 9.6 % (1.7-12.7); NRBC # 0.02 10*3/uL; Neutrophils % 53.3 % (38.7-73.9); Platelet Count 80 T/CUMM (130-400); Red Blood Count 3.08 MC/CUMM (3.8-5.5); Red Cell Distribution Width 17.5 % (9.3-17.3); White Blood Count 5.1 T/CUMM (4-12)
[2022-02-25 06:11] LABS: Alanine Aminotransferase 17 U/L (16-61); Albumin 2.2 G/DL (3.4-5.0); Alkaline Phosphatase 128 U/L (45-117); Aspartate Amino Transferase 23 U/L (0-37); Bilirubin,Total < 0.39 MG/DL (0.20-1.00); Blood Urea Nitrogen 7 MG/DL (7-18); Calcium 8.8 MG/DL (8.5-10.1); Carbon Dioxide 30 MMOL/L (21-32); Chloride 113 MMOL/L (98-107); Glucose 83 MG/DL (74-106); Osmolality,Calculated 286.6 MOS/KG (273-304); Sodium 146 MMOL/L (136-145); Total Protein 6.2 G/DL (6.4-8.2)
[2022-02-25] MEDS: PANTOPRAZOLE 40 MG TABLET PO SCH (06:17)
[2022-02-25 06:25] LABS: Atypical Lymphocytes Few; Band Neutrophils 1 % (0-10); Hypochromia 1+; Lymphocytes 34 % (20-55); Microcytosis 1+; Total Cells Counted 100
[2022-02-25 06:26] LABS: Platelet Estimate Decreased; Polychromasia Slight
[2022-02-25] MEDS: BUDESONIDE 0.5 MG/2 ML NEB RESP TX SCH (07:10)
[2022-02-25 10:00] VITALS: BP 162/102
[2022-02-25] MEDS: ASPIRIN EC 81 MG TABLET PO SCH (10:07)
[2022-02-25] MEDS: NON-FORMULARY MEDICATION (Fluticasone Furoate-Vilanterol [Breo Ellipta] 100-25 mcg/dose Bl INH SCH (10:07)
[2022-02-25] MEDS: LOSARTAN 50 MG TABLET PO SCH (10:07)
[2022-02-25] MEDS: DULoxetine 30 MG CAPSULE PO SCH (10:07)
[2022-02-25] MEDS: POTASSIUM CHLORIDE 20 MEQ TABLET PO SCH (10:07)
[2022-02-25] MEDS: LACTULOSE 20 GM/30 ML UDCUP PO SCH (10:07)
[2022-02-25] MEDS: DIVALPROEX 500 MG TABLET PO SCH (10:07)
[2022-02-25] MEDS: BACLOFEN 10 MG TABLET PO SCH (10:08)
[2022-02-25] MEDS: ATORVASTATIN 40 MG TABLET PO SCH (10:08)
[2022-02-25] MEDS: THEOPHYLLINE ER (24 HR) 200 MG CAPSULE PO SCH (10:08)
[2022-02-25] MEDS: AMANTADINE 100 MG CAPSULE PO SCH (10:08)
[2022-02-25] MEDS: OXcarbazepine 300 MG TABLET PO SCH (10:08)
[2022-02-25] MEDS: PREGABALIN 50 MG CAPSULE PO SCH (10:08)
[2022-02-25] MEDS: CETIRIZINE 10 MG TABLET PO SCH (10:09)
[2022-02-25] MEDS: ALPRAZolam 0.25 MG TABLET PO SCH (10:09)
[2022-02-25] MEDS: CHOLECALCIFEROL 1,000 UNIT TABLET PO SCH (10:09)
== END 2022-02-25 12:00 | DRG 92 ==
LOC: EDUNIT# → EDBD → N.ED 10:34 → N.EDINP 13:52 → SUATTDRO 13:52 → N.ICU 18:15 → N.5E 02-19 14:56
PROVIDERS: ADMIT Family Medicine; ATTEND Family Medicine